=== PATIENT | female | born 1985 | race Hispanic/Latino ===

== ENCOUNTER 2021-10-09 13:56 | Outpatient (CLI) | payer SELFPAY ==
[2021-10-09 23:37] LABS: SARS-CoV-2 PCR by NAA Not Detected (NotDetected)
== END 2021-10-09 13:57 | disposition home or self-care (01) ==
LOC: CSHLAB 13:56
PROVIDERS: ATTEND Internal Medicine
DX: Z20.822 Contact with and (suspected) exposure to COVID-19 (principal); R13.10 Dysphagia, unspecified; R63.4 Abnormal weight loss
CPT/HCPCS: U0003; U0005